=== PATIENT | male | born 1960 | race Caucasian/White ===

== ENCOUNTER → 2022-03-19 | Outpatient (REF) | LOC: M PLALAB 10:09 | PROVIDERS: ATTEND Internal Medicine | DX: Z77.9 Other contact with and (suspected) exposures hazardous to health (principal) ==

== ENCOUNTER → 2023-07-13 | Outpatient (REF) | LOC: M PLAIMG 10:33 | PROVIDERS: ATTEND Internal Medicine | DX: R06.02 Shortness of breath (principal) ==

== ENCOUNTER → 2024-05-23 | Outpatient (REF) | LOC: M PLAIMG 10:08 | PROVIDERS: ATTEND Internal Medicine | DX: R06.02 Shortness of breath (principal) ==